=== PATIENT | male | born 1990 | race Caucasian/White ===

== ENCOUNTER 2019-01-26 11:37 | Emergency (ER) | payer SELFPAY ==
[~2019-01-26] VITALS: Wt 78.0 kg
[2019-01-26 11:42] VITALS: BP 159/67; PULSE 67; RESP 18
[2019-01-26] MEDS ORDERED: MED4DP PO (12:07)
[2019-01-26] MEDS ORDERED: NAPR-985 PO (12:07)
--- NOTE | 2019-01-26 14:54 | ERD ---
ER Documentation Chief Complaint Chief Complaint LEFT HAND/PAIN/NUMBNESS X 4 DAYS HPI 28 yr old male complaining of left hand numbness to the fourth and fifth digit x2 days. Patient denies any traumatic injury. He does desk work. He is right- hand dominant. Has not taken medications for his symptoms. Denies medical problems. NKDA. Surgical history left hand surgery. Social history smokes marijuana. ROS All systems reviewed and are negative except as per history of present illness. Medications Home Meds Active Scripts Naproxen* (Naprosyn*) 500 Mg Tablet, 500 MG PO BID PRN for PAIN AND/OR INFLAMMATION, #30 TAB Prov:RIGO RESENDEZ PA-C 01/26/19 Methylprednisolone* (Medrol* DOSE PACK) 4 Mg/Dose-Pack Tab.ds.pk, 4 MG PO . DIRECTED, #1 PACKET Prov:RIGO RESENDEZ PA-C 01/26/19 Allergies Allergies: Coded Allergies: No Known Allergy (Unverified , 01/26/19) PMhx/Soc Medical and Surgical Hx: pt denies Medical Hx History of Surgery: Yes (left arm sx when he was 12 y.o. ) Hx Alcohol Use: No Hx Substance Use: Yes (marijuana occassionally) Hx Tobacco Use: No Smoking Status: Never smoker FmHx Family History: No diabetes, No coronary disease, No other Physical Exam Vitals Vital Signs Date Temp Pulse Resp B/P (MAP) Pulse Ox O2 O2 Flow FiO2 Time Delivery Rate 01/26/19 98.1 67 18 159/67 99 11:42 (97) Physical Exam GENERAL: The patient is well-appearing, well-nourished, in no acute distress CHEST: Clear to auscultation bilaterally. There are no rales, wheezes or rho nchi. HEART: Regular rate and rhythm. No murmurs, clicks, rubs or gallops. ABDOMEN:Soft, nontender and nondistended. Good bowel sounds. No rebound or guarding. No gross peritonitis. No gross organomegaly or masses. EXTREMITIES: Equal pulses bilaterally. There is no peripheral clubbing, cyanosis or edema. No focal swelling or erythema. Full range of motion. Grossly neurovascularly intact. numbness to left middle 4th and 5th digit. normal ROM NEUROLOGIC: Alert and oriented. Cranial nerves II through XII intact. Motor strength in all 4 extremities with 5 out of 5 strength. Sensation grossly intact. SKIN: There is no apparent rash or petechiae. The skin is warm and dry. Procedures/MDM MDM: 28-year-old male presenting with paresthesias to the fourth and fifth digits. I have low suspicion for acute fracture dislocation. Patient likely has ulnar nerve paresthesias and is discharged with supportive medications. Patient is recommended to ice the area. Patient is discharged with strict ER precautions and told to follow-up with primary care. All questions answered at discharge Departure Diagnosis: Primary Impression: Arm paresthesia, right Condition: Stable Patient Instructions: Paraesthesias Referrals: [facility] YOU HAVE RECEIVED A MEDICAL SCREENING EXAM AND THE RESULTS INDICATE THAT YOU DO NOT HAVE A CONDITION THAT REQUIRES URGENT TREATMENT IN THE EMERGENCY DEPARTMENT. FURTHER EVALUATION AND TREATMENT OF YOUR CONDITION CAN WAIT UNTIL YOU ARE SEEN IN YOUR DOCTORS OFFICE WITHIN THE NEXT 1-2 DAYS. IT IS YOUR RESPONSIBILITY TO MAKE AN APPOINTMENT FOR FOLOW-UP CARE. IF YOU HAVE A PRIMARY DOCTOR --you should call your primary doctor and schedule an appointment IF YOU DO NOT HAVE A PRIMARY DOCTOR YOU CAN CALL OUR PHYSICIAN REFERRAL HOTLINE AT IF YOU CAN NOT AFFORD TO SEE A PHYSICIAN YOU CAN CHOSE FROM THE FOLLOWING [facility] [address] [facility]. [facility] [address] [facility] [facility] [address] [facility] [facility] [address] [facility]. [facility] [address] [facility]. [facility]. [address] Additional Instructions: FOLLOW UP WITH YOUR PRIMARY CARE PHYSICIAN TOMORROW.Return to this facility if you are not improving as expected. RIGO RESENDEZ PA-C January 26, 2019 14:54
== END 2019-01-26 12:30 | disposition home or self-care (01) ==
LOC: FTE 11:37
DX: R20.2 Paresthesia of skin (principal)
CPT/HCPCS: 99283